=== PATIENT | female | born 1960 | race Two or more races ===

== ENCOUNTER 2020-07-30 12:13 | Emergency (ER) | payer OTHER ==
[~2020-07-30] VITALS: Ht 162.6 cm; Wt 83.5 kg
[2020-07-30 12:34] VITALS: BP 140/89
--- NOTE | 2020-07-30 14:16 | NUR ---
COVID SWAB SENT. Patient discharged to home in stable condition. Written and verbal after care instructions given. Patient verbalizes understanding of instruction.
== END 2020-07-30 14:17 | disposition home or self-care (01) ==
LOC: ER 12:22
DX: Z20.828 Contact with and (suspected) exposure to other viral communicable diseases (principal)
CPT/HCPCS: 99283; C9803; U0003

== ENCOUNTER 2021-12-09 11:33 | Emergency (ER) | payer OTHER ==
[~2021-12-09] VITALS: Ht 162.6 cm; Wt 77.1 kg
[2021-12-09 11:53] VITALS: BP 134/92
--- NOTE | 2021-12-09 12:00 | NUR ---
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 Will continue to monitor the patient.
--- NOTE | 2021-12-09 12:18 | NUR ---
DR COLON ASSESSING THE PATIENT
[2021-12-09] MEDS ORDERED: NAPROXEN 250 MG TABLET ONE (13:05)
--- NOTE | 2021-12-09 13:07 | NUR ---
Given Naproxen 250mg po x1 per verbal orders of Dr felix
[2021-12-09] MEDS ORDERED: NAPR-1192 PO (13:09)
--- NOTE | 2021-12-09 13:33 | NUR ---
Patient discharged to home in stable condition. Written and verbal after care instructions given. Patient verbalizes understanding of instruction.
== END 2021-12-09 13:32 | disposition home or self-care (01) ==
LOC: ER 11:38
DX: S89.92XA Unspecified injury of left lower leg, initial encounter (principal); S46.092A Other injury of muscle(s) and tendon(s) of the rotator cuff of left shoulder, initial encounter; Z60.2 Problems related to living alone; W01.0XXA Fall on same level from slipping, tripping and stumbling without subsequent striking against object, initial encounter; Y93.89 Activity, other specified; Y92.89 Other specified places as the place of occurrence of the external cause; Y99.8 Other external cause status
CPT/HCPCS: 73030-TC; 73564-TC